=== PATIENT | female | born 1945 | race Caucasian/White ===

== ENCOUNTER → 2022-11-18 23:38 | Outpatient (CLI) | payer MEDICARE, SELFPAY ==
[2022-11-18 17:30] LABS: Basophils # 0.1 K/mm3 (0-0.2); Basophils % 0.6 % (0.1-2.0); Eosinophils # 0.1 K/mm3 (0.0-0.4); Eosinophils % 1.3 % (0.1-12.0); Hematocrit 41.3 % (37.0-47.0); Hemoglobin 13.4 g/dL (12.2-16.2); Lymphocytes % 22.8 % (10-50); Mean Corpuscular HGB Conc 32.3 g/dL (31.8-35.4); Mean Corpuscular Hemoglobin 26.8 pg (27.0-31.2); Mean Corpuscular Volume 83.1 fl (81-99); Mean Platelet Volume 9.8 fl (7.4-10.4); Monocytes # 0.4 K/mm3 (0.1-1.0); Monocytes % 4.9 % (1.7-9.3); Neutrophils # 6.3 K/mm3 (1.8-7.8); Neutrophils % 70.5 % (37.0-80.0); Platelet Count 452 K/mm3 (142-424); Red Blood Count 4.97 M/mm3 (4.20-5.40); Red Cell Distribution Width 15.1 % (11.5-17.5); White Blood Count 8.9 K/mm3 (4.8-10.8)
[2022-11-18 18:13] LABS: Alanine Aminotransferase 25 U/L (12-78); Albumin Level 4.3 g/dl (3.5-5.0); Albumin/Globulin Ratio 1.4 (1.1-1.8); Alkaline Phosphatase 92 U/L (38-126); Anion Gap 15.4 mEq/L (5-15); Aspartate Amino Transferase 33 U/L (14-36); Bilirubin,Total 0.4 mg/dl (0.2-1.3); Blood Urea Nitrogen 9 mg/dl (7-17); Calcium 9.3 mg/dl (8.4-10.2); Carbon Dioxide 28 mmol/L (22.0-30.0); Chloride 100 mmol/L (98-107); Chol/HDL Ratio 5.2 (1-3.5); Cholesterol 270 mg/dl (140-200); Estimated Glomerular Filt Rate 61 ml/min (>60); GFR (African American) 74 ML/MIN (>60); Globulin 3.1 g/dL (1.3-3.2); Glucose 115 mg/dl (74-100); HDL Cholesterol 52 mg/dl (40-60); Potassium 4.4 mmoL/L (3.5-5.1); Sodium 139 mmol/L (136-145); Total Protein,Serum 7.4 g/dl (6.3-8.2); Triglycerides 249 mg/dl (30-150); VLDL Cholesterol 50 mg/dL (0-40)
[2022-11-18 18:24] LABS: Direct LDL Cholesterol 154.41 mg/dL (100-129)
[2022-11-18 18:43] LABS: Thyroid Stimulating Hormone 0.67 uIU/mL (0.465-4.68)
[2022-11-19 11:03] LABS: Hemoglobin A1C 5.4 % (4.0-6.0)
== END ==
PROVIDERS: PCP Family Medicine; Visit Provider Family Medicine
DX: I10 Essential (primary) hypertension (principal); R53.83 Other fatigue; Z00.00 Encounter for general adult medical examination without abnormal findings; R73.9 Hyperglycemia, unspecified
CPT/HCPCS: 80053; 80061; 83036; 84443; 85025

== ENCOUNTER 2023-07-18 09:33 | Emergency (ER) | payer MEDICARE, SELFPAY ==
[2023-07-18 11:10] VITALS: BP 176/90; PULSE 92; RESP 20; TEMP 36.8; O2SAT 98; BMI 28.1
[2023-07-18 11:33] VITALS: BP 176/90; PULSE 92; RESP 20; TEMP 36.8; O2SAT 98
[2023-07-18 11:36] LABS: UTC Influenza A Antigen Negative (Negative); UTC Influenza B Antigen Negative (Negative); UTC Strep Screen (Rapid) Negative (Negative)
--- NOTE | 2023-07-18 11:49 | EXP.UTC ---
Discharge Plan Disposition Patient Disposition: Home, Self-Care Condition: Good Prescriptions Prescriptions: New amoxicillin-pot clavulanate [Augmentin] 500-125 mg tablet 1 tab PO Q12H Qty: 20 0RF methylprednisolone [Medrol (Jose)] 4 mg tablets,dose pack See Rx Instructions .ROUTE .COMPLEX 6 Days Qty: 21 0RF Rx Instructions: 4 mg orally ;Medrol dose taper jose benzonatate 100 mg capsule 100 mg PO TID PRN (Reason: cough) Qty: 30 0RF No Action amlodipine 5 mg tablet 5 mg PO DAILY omeprazole 40 mg capsule,delayed release(DR/EC) 40 mg PO DAILY hydrochlorothiazide 25 mg tablet 25 mg PO DAILY losartan 100 mg tablet 100 mg PO DAILY fluticasone propion-salmeterol [Advair HFA] 230-21 mcg/actuation HFA aerosol inhaler 2 puff INHALATION DAILY Referrals Follow up/Referrals: Goran Vega MD [Primary Care Provider] - See instructions Clinical Impressions Clinical Impression: Acute upper respiratory infection Acute suppur right otitis media w/spontan rupture of tympanic membrane Qualifiers: Recurrence: not specified as recurrent Qualified Code(s): H66.011 - Acute suppurative otitis media with spontaneous rupture of ear drum, right ear Instructions Patient Instructions: DI for Middle Ear Infection-Adult, Acute Bronchitis Discharge ED Provider: Sherice George [facility] General Stated complaint: dizziness, fever, runny nose, cough, congestion Mode of Arrival: Ambulatory Source of Information: Patient Limitations: No Limitations Time Seen by Provider: 07/18/23 11:49 Description of Symptoms (Recalled from Triage Doc. by RN): PATIENT C/O FEVER, COUGH, SORE THROAT, RUNNY NOSE, AND LOW ENERGY SINCE LAST WEEK HEENT Symptoms (Recalled from RN notes): Yes Resp Symptoms (Recalled from RN notes): Yes Skin Symptoms (Recalled from RN notes): No MS Symptoms (Recalled from RN notes): No Functional Status (Recalled from RN notes): WNL Related Data Home Medications Medication Instructions Recorded Confirmed amlodipine 5 mg tablet 5 mg PO DAILY 07/18/23 07/18/23 fluticasone propionate 230 2 puff inhalation DAILY 07/18/23 07/18/23 mcg-salmeterol 21 mcg/actuation HFA inhaler (Advair HFA) hydrochlorothiazide 25 mg tablet 25 mg PO DAILY 07/18/23 07/18/23 losartan 100 mg tablet 100 mg PO DAILY 07/18/23 07/18/23 omeprazole 40 mg capsule,delayed 40 mg PO DAILY 07/18/23 07/18/23 release Previous Rx's Medication Instructions Recorded amoxicillin 500 mg-potassium 1 tab PO Q12H #20 tabs 07/18/23 clavulanate 125 mg tablet (Augmentin) benzonatate 100 mg capsule 100 mg PO TID PRN cough #30 caps 07/18/23 methylprednisolone 4 mg tablets in See Rx Instructions .Route 07/18/23 a dose pack (Medrol (Jose)) .COMPLEX 6 days #21 tabs Allergies Allergy/AdvReac Type Severity Reaction Status Date / Time No Known Allergies Allergy Verified 07/08/23 09:43 Worker's Comp Is this a Worker's Comp case?: No [facility] Disclaimer: The information contained in this section may have been updated after the patient was seen, as this information can be updated by other users. Medical History Bronchiolitis Hyperlipidemia Hypertension Melanoma Surgical History Femur fracture, right Foot fracture, left Family History Mother Coronary artery disease Father Cancer Social History Smoking Status: Current every day smoker alcohol intake: never substance use type: denies use current occupational status: retired Travel in the last 8 weeks: None household members: none housing: house ROS Obtained: Yes All systems reviewed & no additional complaints except as documented Constitutional Constitutional: Reports system reviewed and no additional compl
== END 2023-07-18 12:10 | disposition home or self-care (01) ==
PROVIDERS: Emergency Provider Nurse Practitioner Family; PCP Family Medicine
DX: J20.9 Acute bronchitis, unspecified (principal); H66.001 Acute suppurative otitis media without spontaneous rupture of ear drum, right ear; R51.9 Headache, unspecified; R50.9 Fever, unspecified; R42 Dizziness and giddiness; R05.9 Cough, unspecified; R09.81 Nasal congestion; R53.83 Other fatigue; F17.210 Nicotine dependence, cigarettes, uncomplicated; E78.5 Hyperlipidemia, unspecified; I10 Essential (primary) hypertension
CPT/HCPCS: 87804; 87880; 99204; 99212; G0463

== ENCOUNTER 2024-03-05 14:29 | Emergency (ER) | payer MEDICARE, SELFPAY ==
[2024-03-05 14:31] VITALS: BP 185/146; PULSE 110; RESP 20; TEMP 36.9; O2SAT 97; BMI 31.6
--- NOTE | 2024-03-05 14:38 | PC.NURSE ---
DR SAMAYOA AT BEDSIDE
--- NOTE | 2024-03-05 14:53 | HMH.EDGENADL ---
Discharge Plan Disposition Chief Complaint: Vaginal Bleeding Prescriptions Prescriptions: No Action amlodipine 5 mg tablet 5 mg PO DAILY 90 Days Qty: 90 2RF hydrochlorothiazide 25 mg tablet 25 mg PO DAILY 90 Days Qty: 90 2RF losartan 100 mg tablet 100 mg PO DAILY 90 Days Qty: 90 2RF omeprazole 40 mg capsule,delayed release(DR/EC) 40 mg PO DAILY 90 Days Qty: 90 2RF fluticasone propion-salmeterol [Advair HFA] 230-21 mcg/actuation HFA aerosol inhaler 2 puff INHALATION DAILY amoxicillin-pot clavulanate [Augmentin] 500-125 mg tablet 1 tab PO Q12H Qty: 20 0RF methylprednisolone [Medrol (Jose)] 4 mg tablets,dose pack See Rx Instructions .ROUTE .COMPLEX 6 Days Qty: 21 0RF Rx Instructions: 4 mg orally ;Medrol dose taper jose benzonatate 100 mg capsule 100 mg PO TID PRN (Reason: cough) Qty: 30 0RF Referrals Follow up/Referrals: Loli Cormier DO [Staff Physician] - See instructions Merlyn Christian DO [Staff Physician] - See instructions Goran Vega MD [Primary Care Provider] - See instructions Activity Restrictions/Add. Instructions Additional Instructions/Restrictions: As discussed postmenopausal bleeding is concerning for possible malignancy and it is imperative that you closely follow-up with [facility] doctor. I have given you referral to our female physicians Dr. Cormier and Gino who are [facility] doctors. Please return with any significant bleeding that would be equivalent of more than a pad an hour lightheadedness feeling fatigue significant abdominal pain or other concerns. Clinical Impressions Clinical Impression: Post-menopausal bleeding Print Language Print Language: Pakistani Discharge ED Provider: Jayden Reyna General Adult HPI General Chief complaint: Vaginal Bleeding Stated complaint: vaginal bleeding, cramps Time Seen by Provider: 03/05/24 14:34 Mode of Arrival: Ambulatory Source of Information: Patient and Relative Limitations: No Limitations Description of Symptoms (Recalled from ER Triage Doc. by RN): pt noted one episode of vaginal bleeding today after going to the bathroom and wiping, pt denies any abd pain or n/v. pt is very sure it came from vagina and denies any urinary s/s or truama to area. History of Present Illness HPI narrative: Patient is a 78-year-old previously healthy female presenting today with vaginal bleeding. States that she is about 38 years postmenopausal however she did have an abnormal Pap smear toward the end of her menstrual cycles but is never been diagnosed with any type of uterine or genitourinary cancer. She states that she was in her normal state of health and was with her daughter shopping today. She was feeling very well and went to the bathroom when she noticed significant vaginal bleeding. This lasted just for short period of time but was bright red. It has subsequently stopped. She denies having any urinary bleeding or gastrointestinal bleeding and is certain that this is vaginal. She states that her lower abdominal region felt a little bit of crampy discomfort but is very benign and almost essentially stopped at this point. Related Data Home Medications ?Medication ?Instructions ?Recorded ?Confirmed fluticasone propionate 230 2 puff inhalation DAILY 07/18/23 07/18/23 mcg-salmeterol 21 mcg/actuation HFA inhaler (Advair HFA) Previous Rx's ?Medication ?Instructions ?Recorded amoxicillin 500 mg-potassium 1 tab PO Q12H #20 tabs 07/18/23 clavulanate 125 mg tablet (Augmentin) benzonatate 100 mg capsule 100 mg PO TID PRN cough #30 caps 07/18/23 methylprednisolone 4 mg tablets in See Rx Instructions .Route 07/18/23 a dose pack (Medrol (Jose)) .COMPLEX 6 days #21 tabs amlodipine 5 mg tablet 5 mg PO DAILY 90 days #90 tabs 08/14/23 hydrochlorothiazide 25 mg tablet 25 mg PO DAILY 90 days #90 tabs 08/14/23 losartan 100 mg tablet 100 mg PO DAILY 90 days #90 tabs 08/14/23 omeprazole 40 mg capsule,delayed 40 mg PO DAILY 90 days #90 caps 08/14/23 release Allergies Allergy/AdvReac Type Severity Reaction Status Date / Time No Known Allergies Allergy Verified 07/08/23 09:43 [facility] Disclaimer: The information contained in this section may have been updated after the patient was seen, as this information can be updated by other users. Medical History Bronchiolitis Hyperlipidemia Hypertension Melanoma Surgical History Femur fracture, right Foot fracture, left Family History Mother Coronary artery disease Father Cancer Social History Smoking Status: Current every day smoker alcohol intake: never substance use type: denies use current occupational status: retired Travel in the last 8 weeks: None household members: none housing: house ROS Obtained: Yes All systems reviewed & no additional complaints except as documented Physical Exam General General appearance: alert Respiratory Respiratory exam: Present normal lung sounds bilaterally Cardiovascular Cardiovascular exam: Present regular rate Abdominal Exam Abdominal exam: Present soft; Absent distention or tenderness Neurological Exam Neurological exam: Present alert and oriented X3 Medical Decision Making Buddy Inquiry Pt receiving controlled substance: No Vital Signs: 03/05/24 14:31 Temperature 98.5 F Temperature Source Oral Pulse Rate [Right Radial] 110 H Respiratory Rate 20 Blood Pressure [Right Arm] 185/146 H Blood Pressure Mean [Right Arm] 159 02 Sat by Pulse Oximetry 97 Oxygen Delivery Method Room Air Medical Decision Narrative: Patient is a 78-year-old female presenting today with postmenopausal vaginal bleeding. Her abdominal exam is very benign she is stable hemodynamically and bleeding appears to have stopped from historical standpoint. I discussed with her multiple options. First I offered her a /pelvic exam so that I could differentiate where the bleeding was coming from. I also offered her lab work and imaging such as CT scan to see if she had advanced or nonlocalized cancer. However given her stability I gave her the option of closely following up in an outpatient setting with [facility] as this from historical standpoint sounds as if it is most likely postmenopausal vaginal bleeding which is highly concerning for possible malignancy. Of course there are other things in the differential which she is aware of and she understands the seriousness of this. She opted to closely follow-up in an outpatient setting and she would prefer that she have a female provider do the pelvic exam. There is a completely understandable and I have given her a referral to Dr. Cormier and/or Dr. Barnes. I also advised that she follow-up back in the emergency department any significant worsening of her symptoms such as pain significant bleeding or other concerns Critical Care Critical Care Time Critical Care Time: No
[2024-03-05 14:58] VITALS: BP 146/70; PULSE 100; RESP 20; TEMP 36.7; O2SAT 96
== END 2024-03-05 15:00 | disposition home or self-care (01) ==
PROVIDERS: Emergency Provider Student in an Organized Health Care Education/Training Program; PCP Family Medicine
DX: N95.0 Postmenopausal bleeding (principal)
CPT/HCPCS: 99282

== ENCOUNTER 2024-03-14 09:11 | Outpatient (CLI) | payer MEDICARE, SELFPAY ==
--- NOTE | 2024-03-14 09:17 | US_ITS ---
PROCEDURE: US TRANSVAGINAL CLINICAL INDICATION: Post menopausal bleeding COMPARISON: No exams were available for comparison FINDINGS: Transvaginal sonographic images of the pelvis were obtained. UTERUS: 6.0cm x 4.7 cmx 2.2cm anteverted with a combined endometrial thickness of 7.3mm-8.4 mm. The endometrium is thickened and multi-cystic in appearance. There are multiple calcifications within the myometrium. There is a small posterior fibroid measuring 0.7 cm x 0.5 cm x 0.6 cm. LEFT OVARY: Not visualized. RIGHT OVARY: 1.1cmx 1.0cmx0.7 cm with a volume of 0.4ml. The right ovary appears atrophic. Right ovary is seen and appears atrophic. Doppler flow to right ovary is seen. There is no fluid in the cul-de-sac. IMPRESSION: 1. Anteverted, small uterus. There are multiple calcifications within the myometrium. 2. The endometrium is thickened and multi-cystic. Suggest endometrial sampling. 3. The right ovary is seen and appears atrophic. The left ovary is not visualized. 4. No fluid in the cul-de-sac. Dictated by: Murali Jason MD 03/14/2024 17:06 Murali Jason MD in OV 03/14/2024 17:06
== END 2024-03-14 23:59 | disposition home or self-care (01) ==
LOC: RAD 09:14
PROVIDERS: PCP Family Medicine; Visit Provider Obstetrics & Gynecology
DX: N95.0 Postmenopausal bleeding (principal)
CPT/HCPCS: 76830

== ENCOUNTER 2024-12-07 09:45 | Outpatient (CLI) | payer MEDICARE, SELFPAY ==
[2024-12-07 16:44] LABS: Basophils # 0.1 K/mm3 (0-0.2); Eosinophils # 0.1 Kmm3 (0.0-0.4); Hematocrit 43.2 % (37.0-47.0); Hemoglobin 13.4 g/dL (12.2-16.2); Immature Granulocytes # 0.03 10^3uL; Immature Granulocytes % 0.3 %; Lymphocytes % 23.1 % (10-50); Mean Corpuscular Hemoglobin 25.9 pg (27.0-31.2); Mean Corpuscular Volume 83.4 fl (81-99); Monocytes # 0.6 K/mm3 (0.1-1.0); Monocytes % 6.3 % (1.7-9.3); Neutrophils % 68.3 % (37.0-80.0); Nucleated Red Blood Cells # 0 10^3/uL; Nucleated Red Blood Cells % 0 %; Platelet Count 393 K/mm3 (142-424); Red Blood Count 5.18 M/mm3 (4.20-5.40); Red Cell Distribution Width 14.8 % (11.5-17.5); Red Cell Distribution Width-SD 45.5 fL; White Blood Count 8.8 K/mm3 (4.8-10.8)
[2024-12-07 19:32] LABS: Alanine Aminotransferase 19 U/L (12-78); Albumin Level 4.8 g/dl (3.5-5.0); Albumin/Globulin Ratio 1.7 (1.1-1.8); Alkaline Phosphatase 83 U/L (38-126); Aspartate Amino Transferase 29 U/L (14-36); Bilirubin,Total 0.5 mg/dl (0.2-1.3); Blood Urea Nitrogen 14 mg/dl (7-17); Calcium 9.5 mg/dl (8.4-10.2); Carbon Dioxide 25 mmol/L (22.0-30.0); Chloride 103 mmol/L (98-107); Cholesterol 274 mg/dl (140-200); Estimated Glomerular Filt Rate 61 ml/min (>60); GFR (African American) 73 ML/MIN (>60); Globulin 2.8 g/dL (1.3-3.2); Glucose 103 mg/dl (74-100); Total Protein,Serum 7.6 g/dl (6.3-8.2); Triglycerides 285 mg/dl (30-150); VLDL Cholesterol 57 mg/dL (0-40)
[2024-12-07 19:44] LABS: Direct LDL Cholesterol 172.18 mg/dL (100-129)
[2024-12-07 20:20] LABS: Anion Gap 14.2 mEq/L (5-15); Potassium 4.2 mmoL/L (3.5-5.1); Sodium 138 mmol/L (136-145)
[2024-12-07 20:21] LABS: Chol/HDL Ratio 4.9 (1-3.5); HDL Cholesterol 56 mg/dl (40-60)
[2024-12-07 20:56] LABS: HIV Combo NEGATIVE (Negative)
[2024-12-07 21:07] LABS: Hepatitis C Ab Qual. W/ RFX NEGATIVE (Negative)
== END 2024-12-07 23:59 | disposition home or self-care (01) ==
LOC: LAB.DROPOF 12-09 11:46
PROVIDERS: PCP Family Medicine; Visit Provider Family Medicine
DX: Z11.59 Encounter for screening for other viral diseases (principal); Z11.4 Encounter for screening for human immunodeficiency virus [HIV]; I10 Essential (primary) hypertension; E78.5 Hyperlipidemia, unspecified; F17.200 Nicotine dependence, unspecified, uncomplicated
CPT/HCPCS: 80053; 80061; 85025; 86803; 87389